=== PATIENT | female | born 1990 | race Asian ===

== ENCOUNTER 2020-11-13 21:30 | Emergency (ER) | payer OTHER ==
--- NOTE | 2020-11-13 21:59 | ED Physician Documentation ---
PD HPI NVD - Stated complaint Stated Complaint: VOMITING/F - History obtained from History obtained from: Patient - History of Present Illness Timing - onset: How many hours ago (5-6), Today Timing - duration: Hours (5-6) Associated symptoms: Abdominal pain, Vaginal bleeding (she states she has soaked about 6 pads over the past 5-6 hours.). No: Fever, Loss of appetite, Dysuria, Vaginal dc Contributing factors: Other (recent diagnosis of incomplete miscarriage with U/S routinely for this past week showing nonviable IUP. Quant 10,000 per patient. Was to see sand bobber to discuss D&C if did not complete miscarriage in next week (referred to due to pulmonary HTN and sees [facility] T[facility] ; Rx Sildenafil.). No: Sick contact Worsened by: Moving Similar symptoms before: Diagnosis (prior miscarriage early first trimester last year.) Recently seen: Clinic Review of Systems Constitutional: denies: Fever, Chills Nose: denies: Rhinorrhea / runny nose, Congestion Throat: denies: Sore throat Respiratory: denies: Cough GI: reports: Abdominal Pain, Nausea. denies: Vomiting, Diarrhea : reports: Vaginal bleeding. denies: Discharge Musculoskeletal: denies: Neck pain, Back pain Neurologic: reports: Generalized weakness. denies: Near syncope PD PAST MEDICAL HISTORY - Past Medical History Cardiovascular: Other (pulonary hypertension, followed by Pulmonary Clinic at , on Sildenafil. ) Neuro: None Endocrine/Autoimmune: None Psych: Depression, Anxiety - Present Medications Home Medications: Ambulatory Orders Medication Instructions Recorded Confirmed Sildenafil Citrate [Sildenafil] 20 mg PO TID 11/13/20 11/13/20 buPROPion [Wellbutrin Sr] 100 mg PO DAILY 11/13/20 11/13/20 - Allergies Allergies/Adverse Reactions: Allergies Allergy/AdvReac Type Severity Reaction Status Date / Time chlorhexidine Allergy Hives Verified 11/13/20 22:01 Sulfa (Sulfonamide Allergy Nausea Verified 11/13/20 22:01 Antibiotics) - Living Situation Living Situation: reports: With spouse/s.o. Living Arrangement: reports: At home (in [place]) - Social History Does the pt smoke?: No Does the pt drink ETOH?: No Does the pt have substance abuse?: No - Family History Family history: reports: Non contributory PD ED PE NORMAL - Vitals Vital signs reviewed: Yes - General General: Alert and oriented X 3, Well developed/nourished, Other (appears in pain due to lower abd cramping. ) - Neck Neck: Supple, no meningeal sign, No adenopathy - Cardiac Cardiac: RRR, No murmur - Respiratory Respiratory: Clear bilaterally - Abdomen Abdomen: Normal bowel sounds, Soft, Non distended, No organomegaly, Other (fundus feels firm almost midway from symphysis to umbilicus. ) - Female Female : Deferred - Back Back: No CVA TTP - Derm Derm: Normal color, Warm and dry - Extremities Extremities: No deformity, No tenderness to palpate, No edema, No calf tenderness / cord - Neuro Neuro: Alert and oriented X 3, No motor deficit, Normal speech Results - Vitals Vitals: Vital Signs - 24 hr 11/13/20 11/14/20 11/14/20 21:57 00:51 02:03 Temperature 36.2 C L Heart Rate 59 L 69 84 Respiratory 26 H 16 19 Rate Blood Pressure 105/66 107/55 L O2 Saturation 100 95 98 11/14/20 04:00 Temperature 36.3 C L Heart Rate 89 Respiratory 16 Rate Blood Pressure 109/52 L O2 Saturation 100 Oxygen O2 Source Room air - Labs Labs: Laboratory Tests 11/13/20 11/13/20 11/13/20 22:06 22:06 22:34 WBC 14.7 H RBC 3.64 L Hgb 13.0 Hct 36.9 L MCV 101.4 H MCH 35.7 H MCHC 35.2 RDW 11.8 L Plt Count 251 MPV 8.6 Neut # (Auto) 11.3 H Lymph # (Auto) 2.4 [place] # (Auto) 0.6 Eos # (Auto) 0.3 Baso # (Auto) 0.1 Absolute Nucleated RBC 0.00 Nucleated RBC % 0.0 Sodium 133 L Potassium 3.8 Chloride 103 Carbon Dioxide 21 Anion Gap 9.0 BUN 14 Creatinine 0.7 Estimated GFR (MDRD) 97 Glucose 106 H Calcium 8.7 Total Bilirubin 0.7 AST 21 ALT 18 Alkaline Phosphatase 41 L Total Protein 6.7 Albumin 4.0 Globulin 2.7 Albumin/Globulin Ratio 1.5 Lipase 27 HCG, Quant Urine Color Urine Clarity Urine pH Ur Specific Rowdy Urine Protein Urine Glucose (UA) Urine Ketones Urine Occult Blood Urine Nitrite Urine Bilirubin Urine Urobilinogen Ur Leukocyte Esterase Urine RBC Urine WBC Ur Squamous Epith Cells Urine Bacteria Ur Microscopic Review Urine Culture Comments Nasal Adenovirus (PCR) Nasal B. parapertussis DNA (PCR) Nasal Coronavir 229E PCR Nasal Coronavir HKU1 PCR Nasal Coronavir NL63 PCR Nasal Coronavir OC43 PCR Nasal Enterovir/Rhinovir PCR Nasal Influenza B PCR Nasal Influenza A PCR Nasal Parainfluen 1 PCR Nasal Parainfluen 2 PCR Nasal Parainfluen 3 PCR Nasal Parainfluen 4 PCR Nasal RSV (PCR) Nasal B.pertussis DNA PCR Nasal C.pneumoniae (PCR) Frederic Human Metapneumo PCR Nasal M.pneumoniae (PCR) Nasal SARS-CoV-2 (PCR) Blood Type O POSITIVE 11/13/20 11/13/20 11/14/20 22:34 23:46 00:51 WBC RBC Hgb Hct MCV MCH MCHC RDW Plt Count MPV Neut # (Auto) Lymph # (Auto) [place] # (Auto) Eos # (Auto) Baso # (Auto) Absolute Nucleated RBC Nucleated RBC % Sodium Potassium Chloride Carbon Dioxide Anion Gap BUN Creatinine Estimated GFR (MDRD) Glucose Calcium Total Bilirubin AST ALT Alkaline Phosphatase Total Protein Albumin Globulin Albumin/Globulin Ratio Lipase HCG, Quant 4268.00 Urine Color RED/BLOODY Urine Clarity CLOUDY Urine pH 7.0 Ur Specific Rowdy 1.020 Urine Protein Urine Glucose (UA) 100 H Urine Ketones 15 H Urine Occult Blood LARGE H Urine Nitrite Urine Bilirubin NEGATIVE Urine Urobilinogen Ur Leukocyte Esterase Urine RBC TNTC H Urine WBC >25 H Ur Squamous Epith Cells NONE SEEN Urine Bacteria Moderate H Ur Microscopic Review INDICATED Urine Culture Comments INDICATED Nasal Adenovirus (PCR) NOT DETECTED Nasal B. parapertussis DNA (PCR) NOT DETECTED Nasal Coronavir 229E PCR NOT DETECTED Nasal Coronavir HKU1 PCR NOT DETECTED Nasal Coronavir NL63 PCR NOT DETECTED Nasal Coronavir OC43 PCR NOT DETECTED Nasal Enterovir/Rhinovir PCR NOT DETECTED Nasal Influenza B PCR NOT DETECTED Nasal Influenza A PCR NOT DETECTED Nasal Parainfluen 1 PCR NOT DETECTED Nasal Parainfluen 2 PCR NOT DETECTED Nasal Parainfluen 3 PCR NOT DETECTED Nasal Parainfluen 4 PCR NOT DETECTED Nasal RSV (PCR) NOT DETECTED Nasal B.pertussis DNA PCR NOT DETECTED Nasal C.pneumoniae (PCR) NOT DETECTED Frederic Human Metapneumo PCR NOT DETECTED Nasal M.pneumoniae (PCR) NOT DETECTED Nasal SARS-CoV-2 (PCR) NOT DETECTED Blood Type 11/14/20 02:48 WBC 15.7 H RBC 3.16 L Hgb 11.4 L Hct 32.1 L MCV 101.6 H MCH 36.1 H MCHC 35.5 RDW 11.7 L Plt Count 213 MPV 8.6 Neut # (Auto) 14.7 H Lymph # (Auto) 0.7 L [place] # (Auto) 0.2 Eos # (Auto) 0.0 Baso # (Auto) 0.0 Absolute Nucleated RBC 0.00 Nucleated RBC % 0.0 Sodium Potassium Chloride Carbon Dioxide Anion Gap BUN Creatinine Estimated GFR (MDRD) Glucose Calcium Total Bilirubin AST ALT Alkaline Phosphatase Total Protein Albumin Globulin Albumin/Globulin Ratio Lipase HCG, Quant Urine Color Urine Clarity Urine pH Ur Specific Rowdy Urine Protein Urine Glucose (UA) Urine Ketones Urine Occult Blood Urine Nitrite Urine Bilirubin Urine Urobilinogen Ur Leukocyte Esterase Urine RBC Urine WBC Ur Squamous Epith Cells Urine Bacteria Ur Microscopic Review Urine Culture Comments Nasal Adenovirus (PCR) Nasal B. parapertussis DNA (PCR) Nasal Coronavir 229E PCR Nasal Coronavir HKU1 PCR Nasal Coronavir NL63 PCR Nasal Coronavir OC43 PCR Nasal Enterovir/Rhinovir PCR Nasal Influenza B PCR Nasal Influenza A PCR Nasal Parainfluen 1 PCR Nasal Parainfluen 2 PCR Nasal Parainfluen 3 PCR Nasal Parainfluen 4 PCR Nasal RSV (PCR) Nasal B.pertussis DNA PCR Nasal C.pneumoniae (PCR) Frederic Human Metapneumo PCR Nasal M.pneumoniae (PCR) Nasal SARS-CoV-2 (PCR) Blood Type - Rads (name of study) OB U/S Radiology: Prelim report reviewed (No IUP. Adnexa appear normal. Complex echogenic material DREW and endocervical. ), See rad report PD MEDICAL DECISION MAKING - ED course Complexity details: re-evaluated patient, considered differential, d/w patient, d/w treasury management sales consultant (Consulted Dr. Rosa who is on for [facility]. The patient was having consistent recurrent pain after pain medicines. Consideration of observation here with pain control and expectant watching for completion of miscarriage versus D&C. And whether our location appropriately given her pulmonary HTN) ED course: The patient was seen by Dr. Rosa who did a pelvic exam and noted still concerning amount of ongoing bleeding. Approximately 2 to 300 mL or so were noted in the vaginal vault with some clots. Some apparent tissue in the endocervix remove gently. Given the concern for ongoing bleeding, a D&C would be more appropriate but Dr. Rosa felt she would be better at the given her considerable history of pulmonary hypertension and specialist there. She did consult maternal- medicine about that issue and they referred to the GAME MA[employer] service. Dr. Rosa talked with the operations asst provider who accepted transfer of the patient. Departure - Departure Disposition: 02 Transfer Acute Care Hosp Clinical Impression: Incomplete miscarriage, Intractable abdominal pain, Vaginal bleeding Condition: Stable Record reviewed to determine appropriate education?: Yes Discharge Date/Time: 11/14/20 04:27
[2020-11-13 22:15] LABS: BASOPHILS # (AUTO) 0.1 10^3/uL (0.0-0.1); BASOPHILS % (AUTO) 0.3 %; EOSINOPHILS # (AUTO) 0.3 10^3/uL (0.0-0.7); EOSINOPHILS % (AUTO) 1.8 %; HCT - HEMATOCRIT 36.9 % (37.0-47.0); LYMPHOCYTES # (AUTO) 2.4 10^3/uL (1.5-3.5); LYMPHOCYTES % (AUTO) 16.2 %; MEAN CORPUSCULAR HEMOGLOBIN 35.7 pg (27.0-31.0); MEAN CORPUSCULAR HGB CONC 35.2 g/dL (32.0-36.0); MEAN CORPUSCULAR VOLUME 101.4 fL (81.0-99.0); MEAN PLATELET VOLUME 8.6 fL (7.9-10.8); MONOCYTES # (AUTO) 0.6 10^3/uL (0.0-1.0); MONOCYTES % (AUTO) 4.2 %; NEUTROPHILS # (AUTO) 11.3 10^3/uL (1.5-6.6); NEUTROPHILS % (AUTO) 77.1 %; PLT - PLATELET COUNT 251 10^3/uL (130-450); RED BLOOD COUNT 3.64 10^6/uL (4.20-5.40); RED CELL DISTRIBUTION WIDTH 11.8 % (12.0-15.0); WHITE BLOOD COUNT 14.7 x10^3/uL (4.8-10.8)
[2020-11-13] MEDS ORDERED: MORPHINE 2 MG/ML CARPUJECT IVP STA (22:18)
[2020-11-13] MEDS ORDERED: ONDANSETRON 4 MG/2 ML VIAL IVP STA (22:18)
[2020-11-13] MEDS ORDERED: SODIUM CHLORIDE 0.9% 1,000 ML IV STA (22:18)
[2020-11-13 22:53] LABS: ALBUMIN/GLOBULIN RATIO 1.5 (1.0-2.2); BILIRUBIN,TOTAL 0.7 mg/dL (0.2-1.0); CALCIUM 8.7 mg/dL (8.5-10.3); CREATININE 0.7 mg/dL (0.4-1.0); POTASSIUM 3.8 mmol/L (3.5-5.0); TOTAL PROTEIN 6.7 g/dL (6.7-8.2)
[2020-11-13] MEDS ORDERED: HYDROmorphone 1 MG/ML CARPUJECT IVP STA (23:59)
[2020-11-14] LABS: BILIRUBIN,URINE NEGATIVE (NEGATIVE); GLUCOSE, URINE (UA) 100 mg/dL (NEGATIVE); KETONES,URINE (UA) 15 mg/dL (NEGATIVE); OCCULT BLOOD,URINE LARGE (NEGATIVE)
[2020-11-14 00:01] LABS: CLARITY,URINE CLOUDY (CLEAR)
[2020-11-14 00:08] LABS: BACTERIA,URINE Moderate /HPF (None Seen); RBC,URINE TNTC /HPF (0-5); SQUAMOUS EPITHELIAL CELL,UR NONE SEEN (<= Few); WBC,URINE >25 /HPF (0-5)
[2020-11-14] MEDS ORDERED: KETOROLAC 15 MG/ML VIAL IVP STA (00:32)
[2020-11-14] MEDS ORDERED: HYDROmorphone 1 MG/ML CARPUJECT IVP STA ×2 (00:35→02:01)
[2020-11-14] MEDS ORDERED: SODIUM CHLORIDE 0.9% 1,000 ML IV STA ×2 (00:41→03:03)
[2020-11-14 01:48] LABS: B. PARAPERTUSSIS- RESP PCR PAN NOT DETECTED; B. PERTUSSIS- RESP PCR PANEL NOT DETECTED; C. PNEUMONIAE- RESP PCR PANEL NOT DETECTED; CORONAVIRUS 229E-RESP PCR NOT DETECTED; CORONAVIRUS HKU1-RESP PCR NOT DETECTED; CORONAVIRUS NL63-RESP PCR NOT DETECTED; CORONAVIRUS OC43-RESP PCR NOT DETECTED; HUMAN METAPNEUMOVIRUS NOT DETECTED; INFLUENZA A- RESP PCR PANEL NOT DETECTED; INFLUENZA B - RESP PCR PANEL NOT DETECTED; M. PNEUMONIAE- RESP PCR PANEL NOT DETECTED; PARAINFLUENZA VIRUS 1 NOT DETECTED; PARAINFLUENZA VIRUS 2 NOT DETECTED; PARAINFLUENZA VIRUS 3 NOT DETECTED; PARAINFLUENZA VIRUS 4 NOT DETECTED; RHINOVIRUS/ENTEROVIRUS NOT DETECTED; RSV- RESP PCR PANEL NOT DETECTED; SARS-CoV-2 -RESP PCR PANEL NOT DETECTED
[2020-11-14] MEDS ORDERED: miSOPROStoL 200 MCG TABLET PO STA (02:24)
[2020-11-14] MEDS ORDERED: miSOPROStoL 200 MCG TABLET ONE (02:33)
--- NOTE | 2020-11-14 02:33 | CONSULTATION NOTE ---
Referring Provider Name of Referring Provider:: Dr. Sales Consult Date: 11/14/20 Chief Complaint - Chief Complaint Chief Complaint: Vaginal bleeding/ SAB History of Present Illness - History Obtained From Records Reviewed: Outside records not available. Hx per patient report. History obtained from: Patient - History of Present Illness HPI Comment/Other: ID: Patient is a 30 yo with active SAB at approximatey 10 weeks ega with complicated PMH. Patient reports that this is her 3rd and second SAB. She is medically complicated with pumonary hypertension and , multiple catheterizations of her right heart. Pulmonary HTN managed with sildenafil 20 mg po TID. She has had one following failed IOL at 38 weeks at [facility], affected by IUGR. Managed by Dr. Goel and Dr. Dhlilon, both of Maternal Medicine. Her animal keeper also is based at [facility]. This has been managed by Dr. Amador of [facility] in [place]. Per patient report, she was beleived to have a aof about 12 weeks ega. Ultrasound last week showed demise measuring about 9-10 weeks. Patient states that there was no embryo present and that she had an empty gestational sac. The plan was to manage expectantly and to transfer to [facility] should she require a D&C. HCG was about 10,000 per patient report. She came to [facility] for the weekend with friends. About 14:00, patient started having cramping and heavy bleeding. She reports she was told that passing tissue larger than a softball would be problematic as would passing an amount of blood that "could fill her shoe". She reports that the volume of tissue she has passed far exceeded the size of a softball and she has filled several shoe's worth of blood volume. Pain exceeds that of her labor course and her prior SAB. She has required several doses of IV Dilaudid and IV toradol and pain remains at the higher level of the pain scale. Pain is intermittent and comes in waves like contractions. Nausea, no emesis. Since arriving at the ED, she has been soaking at least a pad an hour. She has soaked through several layers of towels and continues to have active bleeding with passage of clots. Confirmed Rh positive. HCG on arrival 4268. US showed tissue in endometrial and endocervical canal c/w retained POCs. PMH: Pulmonary HTN, dx of 2009 Hx of ASD, repaired Residual enlargementof the right ventricle PSH: Multiple right heart catheterizations Open repair of atrial seeptaldefect 2005 Laparascopic ablation of endometriosis, [address]) 2018, [facility] OBHX: G1: 10/2018, female, after failed IOL. IUGR in the setting of pulmonary HTN. [facility] (Dr. Goel and Dr. Dhillon) G2: SAB March 2020 (Passed one week after positive UPT, uncomplicated) G3: Current, SAB ROS: As per HPI, otherwise remaining systems are negative. 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 Originally from [place], moved to [place] at [place] 4 History - Past Medical History Cardiovascular: reports: Other MRSA Hx?: No Other Past Medical History: pulmonary HTN, atrial septal defect - Past Surgical History Cardiovascular: reports: Other Meds/Allgy - Home Medications Home Medications: Ambulatory Orders Medication Instructions Recorded Confirmed Sildenafil Citrate [Sildenafil] 20 mg PO TID 11/13/20 11/13/20 buPROPion [Wellbutrin Sr] 100 mg PO DAILY 11/13/20 11/13/20 - Allergies Allergies/Adverse Reactions: Allergies Allergy/AdvReac Type Severity Reaction Status Date / Time chlorhexidine Allergy Hives Verified 11/13/20 22:01 Sulfa (Sulfonamide Allergy Nausea Verified 11/13/20 22:01 Antibiotics) Review of Systems - Other Findings Other Findings: As per HPI, otherwise remaining systems are negative. Exam - Vital Signs Reviewed Vital Signs: Yes Vital Signs: Vital Signs x48h Temp Pulse Resp BP Pulse Ox 11/14/20 02:03 84 19 98 11/14/20 00:51 69 16 107/55 L 95 11/13/20 21:57 97.2 F L 59 L 26 H 105/66 100 - Physical Exam General Appearance: positive: Moderate distress (Sidelying in position, marked distress with contractions.) Neck: positive: Nml inspection Respiratory: positive: No respiratory distress Cardiovascular: positive: Other (Reg rate) Abdomen: positive: Other (Fundus of uterus firm and about 2 cm below umbilicus, about 16-18 weeks size. Tender to palpation,) Skin: positive: Dry, Pallor, Other Extremities: positive: Non-tender, No pedal edema Neurologic/Psychiatric: positive: Oriented x3 Comments/Other: PELVIC: NEFG, Nl BSUMA. Passing large clots with active flow from introitus. Speculum inserted, vaginal vault filled with blood. Clot larger than an orange removed from vaginal vault. Soaked fresh cindy pads during exam. Eventually blood flow cleared to visualize cervix. Small amount of tissue visible at external os. Removed with ring forceps, bleeding continued and additional tissue appears to be present within endocervical canal. BME reveal moderate CMT and dilation of external os to about 1 cm. Tenderness with manipulation of uterus. Uterus enlarged to 16-18 wga. Conclusion/Plan - Diagnosis Diagnosis: Incomplete SAB. Heavy vaginal bleeding. Pulmonary hypertension - Plan Plan: Patient was given misoprostol 600 mcg buccal x1 Pain managed with IV Dilaudid and IV toradaol. Given high volume blood flow over 10-12 hours, decision was made to proceed with surgical management via D&C Patient is medically complicated [facility] pulmonary hypertension Conferred with Dr. Aki Champagne of Maternal Medicine -Agreed that patient likely risked out of the anesthesia services that can be provided at [facility] -Recommended transfer to for procedure and recovery -[facility] does not perform first trimester D&Cs. Deferred to Gynecology service. Conferred with Dr. Fareed Jones of Gynecology Dr. Jones accepted patient for transfer and recommended that she present to ED for assessment Given volume of blood flow and distance from [facility], transport via helicopter was arranged Cleared with Dragan prior to transport Transfer to for possible D&C (More than 90 minutes was spent with patient in face to face contact for examination, nutrition counselor, and arrangement of transfer.) - Lab Results Fish Bones: 11/14/20 02:48 11/13/20 22:34 Other Lab Results: O positive, Utox neg - Other Other Results/Comments: H/H at 22:06 13 /36.9 2:48 11.4/24.8
[2020-11-14 02:52] LABS: BASOPHILS % (AUTO) 0.3 %; EOSINOPHILS % (AUTO) 0.1 %; HCT - HEMATOCRIT 32.1 % (37.0-47.0); HGB - HEMOGLOBIN 11.4 g/dL (12.0-16.0); LYMPHOCYTES # (AUTO) 0.7 10^3/uL (1.5-3.5); LYMPHOCYTES % (AUTO) 4.6 %; MEAN CORPUSCULAR HEMOGLOBIN 36.1 pg (27.0-31.0); MEAN CORPUSCULAR HGB CONC 35.5 g/dL (32.0-36.0); MEAN CORPUSCULAR VOLUME 101.6 fL (81.0-99.0); MEAN PLATELET VOLUME 8.6 fL (7.9-10.8); MONOCYTES # (AUTO) 0.2 10^3/uL (0.0-1.0); MONOCYTES % (AUTO) 1.4 %; NEUTROPHILS # (AUTO) 14.7 10^3/uL (1.5-6.6); NEUTROPHILS % (AUTO) 93.2 %; PLT - PLATELET COUNT 213 10^3/uL (130-450); RED BLOOD COUNT 3.16 10^6/uL (4.20-5.40); RED CELL DISTRIBUTION WIDTH 11.7 % (12.0-15.0); WHITE BLOOD COUNT 15.7 x10^3/uL (4.8-10.8)
[2020-11-14 04:16] VITALS: BP 109/52
--- NOTE | 2020-11-14 12:56 | Ultrasound Report ---
PROCEDURE: OB First Trimester INDICATIONS: U/S 3 days ago incomplete miscarriage; bleed today OUTSIDE/PRIOR DATING DATA: Last menstrual period (LMP): 08/21/2020. LMP-based estimated date of delivery (GAVIN): 05/28/2021. First dating scan (date and location): 11/13/2020. Estimated date of delivery (GAVIN) from first dating scan: Not applicable. TECHNIQUE: Real-time scanning was performed of the fetus and maternal pelvic organs, with image documentation. T ransvaginal exam was performed but terminated early due to pain. COMPARISON: None. FINDINGS: Embryo: No intrauterine gestational sac or pole is seen. There is fluid and debris in the lowe r uterine segment and cervix. Endometrium is heterogeneous with prominent blood flow. Measurement variability in dating: +/- 4 weeks by LMP, +/- 7 days by mean sac diameter (use before 6 weeks gestation if crown-rump length not able to be measured), +/- 5 days by crown-rump length (6-12 weeks gestation). Maternal organs: Ovaries are within normal limits. Right ovary measures 3.4 x 2.4 x 1.9 cm. Left ova ry measures 2.9 x 2.2 x 2 cm. Blood flow seen in both ovaries.. IMPRESSION: Fluid and debris in the lower uterine segment and cervix. Findings most compatible with spontaneous a bortion in progress. Possible retained products of conception. No gestational sac or either pole seen . Ovaries are normal. Recommend trending beta hCG and short-term follow-up ultrasound if clinically indicated. This report is concordant with the overnight preliminary interpretation. Reviewed by: Jesus Manuel Mota MD on 11/14/2020 11:55 AM RADHA Approved by: Jesus Manuel Mota MD on 11/14/2020 11:55 AM RADHA Station ID: [id number]
== END 2020-11-14 04:27 | disposition short-term general hospital (02) ==
LOC: ED 21:30
DX: O03.1 Delayed or excessive hemorrhage following incomplete spontaneous abortion (principal); O99.411 Diseases of the circulatory system complicating pregnancy, first trimester; I27.0 Primary pulmonary hypertension; Z3A.10 10 weeks gestation of pregnancy; Z20.822 Contact with and (suspected) exposure to COVID-19
CPT/HCPCS: 0202U; 36415; 76801; 76817; 80053; 81001; 83690; 84702; 85025; 86900; 86901; 87086; 96374; 96375; 96376; 99284; 99285; A9270; J1170; 81003